=== PATIENT | female | born 1955 ===

== ENCOUNTER 2023-01-30 10:17 | Emergency (ER) | payer MEDICARE, OTHER ==
[~2023-01-30] VITALS: Ht 152.4 cm; Wt 52.2 kg
[2023-01-30 10:28] VITALS: O2SAT 99
== END 2023-01-30 11:57 | disposition home or self-care (01) ==
LOC: ER 10:20
DX: M79.603 Pain in arm, unspecified (principal); E78.5 Hyperlipidemia, unspecified; F41.9 Anxiety disorder, unspecified; Z59.00 Homelessness unspecified; Z88.0 Allergy status to penicillin
CPT/HCPCS: A4606; A4663